=== PATIENT | female | born 1965 | race Caucasian/White ===

== ENCOUNTER 2017-08-20 16:43 | Emergency (ER) | payer MEDICAID ==
[~2017-08-20] VITALS: Ht 160 cm; Wt 66.6 kg
[~2017-08-20 16:43] MED LIST: HYDR-569 PO; NO HOME MEDS
[2017-08-20] MEDS ORDERED: MUPI15CR TOP (17:38)
[2017-08-20 18:02] VITALS: BP 154/94
== END 2017-08-20 17:59 | disposition home or self-care (01) ==
LOC: ER 16:44
DX: L03.012 Cellulitis of left finger (principal); Z86.14 Personal history of Methicillin resistant Staphylococcus aureus infection; Z87.442 Personal history of urinary calculi; Z79.899 Other long term (current) drug therapy
CPT/HCPCS: 99283

== ENCOUNTER 2021-06-24 13:29 | Emergency (ER) | payer MEDICAID ==
[~2021-06-24] VITALS: Ht 157.5 cm; Wt 68.2 kg
[~2021-06-24 13:29] MED LIST changes: +HYDR-4383 PO; -HYDR-569 PO; +MUPI15CR TOP
[2021-06-24 13:44] VITALS: BP 159/98
[2021-06-24] MEDS ORDERED: LIDOcaine 1% 30ml preserv. free vial IJ STA (14:57)
[2021-06-24] MEDS ORDERED: sulfamethoxazole/trimethoprim DS (800/160mg) tablet PO ONE (15:00)
[2021-06-24] MEDS ORDERED: bacitracin 15gm ointment TP ONE (15:00)
[2021-06-24] MEDS ORDERED: SULF1TAB49 PO (15:07)
== END 2021-06-24 15:34 | disposition home or self-care (01) ==
LOC: ER 13:30
DX: L02.01 Cutaneous abscess of face (principal); Z87.442 Personal history of urinary calculi; Z86.14 Personal history of Methicillin resistant Staphylococcus aureus infection; Z72.89 Other problems related to lifestyle; Z79.2 Long term (current) use of antibiotics; Z79.899 Other long term (current) drug therapy
CPT/HCPCS: 10060; 99283